=== PATIENT | female | born 1990 | race Caucasian/White ===

== ENCOUNTER 2019-05-11 12:13 | Emergency (ER) | payer OTHER ==
[2019-05-11 13:28] VITALS: BP 117/75
--- NOTE | 2019-05-11 13:40 | UC ---
Hand/Wrist HPI - HPI Summary HPI Summary: fell last night injuring right wrist and thumb - History Of Current Complaint Chief Complaint: UCUpperExtremity Stated Complaint: RT WRIST PAIN Time Seen by Provider: 05/11/19 12:42 Hx Obtained From: Patient Hx Last Menstrual Period: 04/22/19 ?: No Mechanism Of Injury: Foosh Onset/Duration: Sudden Onset, Lasting Days - 1 Severity Initially: Moderate Severity Currently: Moderate Pain Intensity: 6 Pain Scale Used: 0-10 Numeric Character Of Pain: Aching Aggravating Factor(s): Movement Alleviating Factor(s): Nothing Associated Signs And Symptoms: Positive: Negative Related History: Dominant Hand Right - Allergies/Home Medications Allergies/Adverse Reactions: Allergies Allergy/AdvReac Type Severity Reaction Status Date / Time Sulfa (Sulfonamide Allergy Unknown Verified 05/11/19 13:28 Antibiotics) Reaction Details Home Medications: Home Medications Control 05/11/19 [History] Topiramate [Topamax] 25 mg PO DAILY 05/11/19 [History Confirmed 05/11/19] PMH/Surg Hx/FS Hx/Imm Hx Previously Healthy: No Neurological History: Migraine - Surgical History Surgical History: None - Social History Occupation: Student Lives: With Family Alcohol Use: Weekly Substance Use Type: None Smoking Status (MU): Never Smoked Tobacco Review of Systems All Other Systems Reviewed And Are Negative: Yes Constitutional: Positive: Negative Skin: Positive: Negative Eyes: Positive: Negative ENT: Positive: Negative Respiratory: Positive: Negative Cardiovascular: Positive: Negative Gastrointestinal: Positive: Negative Genitourinary: Positive: Negative Motor: Positive: Negative Neurovascular: Positive: Negative Musculoskeletal: Positive: Arthralgia - right wrist Neurological: Positive: Negative Psychological: Positive: Negative Is Patient Immunocompromised?: No Physical Exam - Summary Physical Exam Summary: pain in radial aspect of wrist, limited strength due to pain full rom in elbow n /m/c intact in fingers Triage Information Reviewed: Yes Appearance: Well-Appearing, No Pain Distress, Well-Nourished Vital Signs: Initial Vital Signs Temp 98.3 F 05/11/19 13:24 Pulse 88 05/11/19 13:24 Resp 16 05/11/19 13:24 BP 117/75 05/11/19 13:24 Pulse Ox 100 05/11/19 13:24 Vital Signs Reviewed: Yes Eye Exam: Normal Eyes: Positive: Conjunctiva Clear ENT Exam: Normal ENT: Positive: Normal ENT inspection, Hearing grossly normal. Negative: Trismus , Muffled voice, Hoarse voice Dental Exam: Normal Neck exam: Normal Neck: Positive: Supple, Nontender Respiratory Exam: Normal Respiratory: Positive: Chest non-tender, No respiratory distress, No accessory muscle use Cardiovascular Exam: Normal Cardiovascular: Positive: RRR, Pulses Normal, Brisk Capillary Refill Musculoskeletal: Positive: No Edema, Strength Limited @ - right wrist, ROM Limited @ - right wrist Neurological Exam: Normal Neurological: Positive: Alert, Muscle Tone Normal Psychological Exam: Normal Skin Exam: Normal Diagnostics - Radiology No standard instances Radiology Interpretation Completed By: Radiologist - +swelling no fracture Hand/Wrist Course/Dx - Course Course Of Treatment: thumb spica--id sx do not resolve follow with re-imaging with lisa bee, - Differential Dx/Diagnosis Provider Diagnosis: Sprain of wrist, right Discharge ED - Sign-Out/Discharge Documenting (check all that apply): Patient Departure All imaging exams completed and their final reports reviewed: No Studies - Discharge Plan Condition: Stable Disposition: HOME Patient Education Materials: Wrist Injury (ED), R.I.C.E. Treatment (ED) Referrals: Ha David MD [Medical Doctor] - 3 Days (if needed) - Billing Disposition and Condition Condition: STABLE Disposition: Home
== END 2019-05-11 14:55 | disposition home or self-care (01) ==
LOC: UCEAST 12:13
DX: S63.501A Unspecified sprain of right wrist, initial encounter (principal); W19.XXXA Unspecified fall, initial encounter; Y92.9 Unspecified place or not applicable; Z88.2 Allergy status to sulfonamides
CPT/HCPCS: 99202; G0463